=== PATIENT | female | born 1960 | race Caucasian/White ===

== ENCOUNTER → 2016-10-29 | Outpatient (CLI) | payer BC ==
--- NOTE | 2016-10-31 07:42 | MM ---
Reason for exam: screening (asymptomatic). History: Patient is postmenopausal and has history of other cancer at age 55. Physical Findings: Nurse did not find any significant physical abnormalities on exam. MG Screening Mammo w CAD Bilateral CC and MLO view(s) were taken. There are scattered fibroglandular densities. Finding #1: There is a 5 mm equal density (isodense), circumscribed oval masses in the upper outer right breast and the lower outer left breast. Finding #2: There are typically benign calcifications in the right breast. These results were verbally communicated with the patient and result sheet given to the patient on 10/29/16. ASSESSMENT: Incomplete: need additional imaging evaluation, BI-RAD 0 RECOMMENDATION: Ultrasound of both breasts. [facility] will attempt to contact patient to return for ultrasound.
--- NOTE | 2016-10-31 07:46 | USB ---
Reason for exam: additional evaluation requested from abnormal screening. History: Patient is postmenopausal and has history of other cancer at age 55. US Breast Limited BILAT Right breast ultrasound demonstrates a 0.4 x 0.4 x 0.4cm lipoma at 9 o'clock, a 0.8 x 0.9 x 1.3cm lipoma at 9 o'clock, a 0.7 x 0.6 x 0.4cm mixed lesion at 9 o'clock and a 0.4 x 0.3 x 0.6cm questionable node at 9 o'clock. Left breast ultrasound demonstrates a 0.6 x 0.6 x 0.5cm mixed lesion with some shadowing at 4 o'clock for which a biopsy is recommended, a 0.6 x 0.3 x 1.0cm ductal lesion at 6 o'clock and a 0.9 x 0.5 x 0.4cm mixed lesion at 5 o'clock. These results were verbally communicated with the patient and result sheet given to the patient on 10/29/16. ASSESSMENT: Suspicious, BI-RAD 4 - Left RECOMMENDATION: Surgical consultation and ultrasound core biopsy of the left breast. (4 o'clock) Called Dr. Erickson with mammographic findings and has scheduled an appointment for the patient for 11/06/16 at 1:[address] Ortiz. PRELIMINARY REPORT CALLED AND FAXED TO DR. ORTIZ ON 10/31/16 AT 800/TP.
== END | disposition home or self-care (01) ==
LOC: RADMAMWWP 10:04
PROVIDERS: ATTEND Family Medicine
DX: Z12.31 Encounter for screening mammogram for malignant neoplasm of breast (principal); R92.8 Other abnormal and inconclusive findings on diagnostic imaging of breast
CPT/HCPCS: 76642; G0202

== ENCOUNTER → 2016-11-13 | Day surgery (SDC) | payer BC ==
[2016-11-13 12:08] VITALS: BMI 40.5
[2016-11-13 13:17] VITALS: BP 141/91; PULSE 71; RESP 18; TEMP 97.2
--- NOTE | 2016-11-13 13:53 | USB ---
EXAMINATION TYPE: US biopsy breast VAD LT, Postbiopsy MG diagnostic mammo LT wo CAD DATE OF EXAM: 11/13/2016 CLINICAL HISTORY: 56-year-old female R92.8 Abnormal mammogram and lesion on ultrasound. TECHNIQUE: Ultrasound guided core biopsy of the left breast. COMPARISON: 10/29/2016 FINDINGS: The procedure of ultrasound guided core biopsy was explained to the patient. Benefits, alternatives, and risks were discussed. An informed consent was then obtained. The patient was placed in supine positioning for imaging and for the procedure. The overlying skin was prepped and draped in usual sterile fashion. 1 % lidocaine was used as anesthetic into the skin and subcutaneous tissue up to area of concern in the 4:00 left breast. Under ultrasound guidance, a 13-gauge vacuum-assisted mammotome Elite biopsy gun device was used to obtain 5 core samples. Fibrocystic change versus cyst cluster versus complex cyst. Following this, a ribbon clip was left at the site of biopsy. Postbiopsy mammogram shows the clip at the 5:00 position middle depth just anterior to the questioned mammographic asymmetry The patient tolerated the procedure well without any immediate complication. The patient was kept in the radiology department for short stay after the procedure and then discharged home in stable condition. IMPRESSION: Successful, uncomplicated ultrasound guided core biopsy of area of concern in the 4:00 left breast. RECOMMENDATIONS: 1. Follow-up pathology. 2. Six-month follow-up mammogram if benign results. Pathology Results: Benign BREAST, LEFT 4:00, CORE BIOPSY: FIBROCYSTIC CHANGES INCLUDING CYSTS, FIBROSIS, COLUMNAR CELL HYPERPLASIA, ADENOSIS, APOCRINE METAPLASIA AND RARE CALCIFICATIONS. Recommendation Follow up ultrasound of the left breast in 6 months. DIANA
== END ==
LOC: RADUSWWP 11:34
PROVIDERS: ATTEND Surgery
DX: N60.12 Diffuse cystic mastopathy of left breast (principal); N60.22 Fibroadenosis of left breast; N60.82 Other benign mammary dysplasias of left breast; R92.1 Mammographic calcification found on diagnostic imaging of breast; R92.8 Other abnormal and inconclusive findings on diagnostic imaging of breast
CPT/HCPCS: 88305; 19083; G0206; A4648; J2001

== ENCOUNTER → 2019-12-14 | Outpatient (CLI) | payer BC ==
--- NOTE | 2019-12-14 12:39 | XR ---
EXAMINATION TYPE: XR knee limited bilateral DATE OF EXAM: 12/14/2019 COMPARISON: NONE HISTORY: Pain TECHNIQUE: Three views of each knee are submitted. FINDINGS: There is narrowing of the knee joint with mild hypertrophic spurring bilaterally. Small suprapatellar bursal fluid collections are noted. Arthropathy of the patellofemoral joints greater on the left. Mi ld diffuse osteopenia. No acute fracture.. Osseous structures are intact. No acute fracture seen. IMPRESSION: 1. Diffuse osteopenia with bilateral mild arthropathy correlate for osteoarthritis..
== END | disposition home or self-care (01) ==
LOC: RADXRMAIN 11:33
PROVIDERS: ATTEND Family Medicine
DX: M85.862 Other specified disorders of bone density and structure, left lower leg (principal); M85.861 Other specified disorders of bone density and structure, right lower leg; M12.862 Other specific arthropathies, not elsewhere classified, left knee; M12.861 Other specific arthropathies, not elsewhere classified, right knee

== ENCOUNTER → 2020-02-02 | Outpatient (CLI) | payer BC ==
--- NOTE | 2020-02-03 14:45 | CT ---
EXAMINATION TYPE: CT abdomen w con DATE OF EXAM: 02/02/2020 COMPARISON: CT abdomen and pelvis 11/28/2015, 10/30/2010, 09/07/2009. HISTORY: Hemangioma of liver CT DLP: [id number] mGycm Automated exposure control for dose reduction was used. TECHNIQUE: Helical acquisition of images was performed from the lung bases through the top of iliac crest to include entire abdomen. CONTRAST: Performed with Oral Contrast and with IV Contrast, patient injected with 100 mL of Isovue 300. FINDINGS: LUNG BASES: Normal. LIVER: Within the right liver segment 5 there is a 3.1 x 3.1 x 3.1 cm redemonstrated lesion with tori pheral enhancement and near complete related filling, most likely benign hemangioma. This is not sign ificantly changed from 09/07/2009 CT comparison. BILIARY SYSTEM: Status post cholecystectomy. No intrahepatic or extrahepatic biliary ductal dilatatio n. PANCREAS: Normal. SPLEEN: Normal. ADRENALS: Normal. KIDNEYS: No hydronephrosis. Redemonstrated renal cysts and too small to characterize hypodense lesion s bilaterally. BOWEL: No obstruction or thickening. Colonic diverticulosis. No acute diverticulitis. PERITONEUM: Normal. LYMPH NODES: No lymphadenopathy. VASCULATURE: No abdominal aortic aneurysm. MUSCULOSKELETAL: Degenerative changes of the spine. IMPRESSION: 3.1 cm hepatic hemangioma not significantly changed in size and 10 years, versus 09/07/2009 comparison .
== END | disposition home or self-care (01) ==
LOC: RADCTMAIN 08:55
PROVIDERS: ATTEND Family Medicine
DX: D18.03 Hemangioma of intra-abdominal structures (principal)
CPT/HCPCS: 74160; Q9967

== ENCOUNTER → 2023-03-21 | Outpatient (CLI) | payer BC ==
--- NOTE | 2023-03-21 09:37 | US ---
EXAMINATION TYPE: US kidneys/renal and bladder DATE OF EXAM: 03/21/2023 COMPARISON: CT 2019, US 2014 CLINICAL INDICATION: Female, 62 years old with history of N28.1 CYST OF KIDNEY, ACQUIRED; Follow up k idney cysts EXAM MEASUREMENTS: Right Kidney: 10.7 x 5.5 x 6.1 cm Left Kidney: 11.9 x 5.8 x 5.9 cm Right Kidney: 2.1 x 1.9 x 2.2cm cyst mid superior pole Left Kidney: 3.3 x 2.9 x 3.2cm cyst lateral mid pole, 2.6 x 1.9 x 2.0cm hyperechoic area superior lupe e Bladder: wnl Bilateral Jets seen: yes There is no evidence for hydronephrosis at this point in time. No nephrolithiasis is seen. No suspi cious masses are identified. 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 The urinary bladder is anechoic. Bilateral ureteral jets are seen. IMPRESSION: 1. No evidence for acute process. Right peripelvic renal cysts appear simple. 2. 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
--- NOTE | 2023-03-22 08:37 | MM ---
Reason for Exam: Screening (asymptomatic). Last mammogram was performed 3 year(s) and 4 month(s) ago. Patient History: Menarche at age 13. First Full-Term at age 28. Postmenopausal. Other cancer, age 55. 11/13/2016, Benign Core Biopsy on the left side. Risk Values: Soledad 5 year model risk: 1.9%. NCI Lifetime model risk: 9.3%. Prior Study Comparison: 10/29/2016 Bilateral Screening Mammogram, [facility]. 11/13/2016 Left Diagnostic Mammogram, [facility]. 12/14/2019 Bilateral Screening Mammogram, [facility]. Tissue Density: There are scattered fibroglandular densities. Findings: Analyzed By CAD. Pattern appears stable. Some ill-defined underlying chronic nodularity may be present, stable from comparison. Some scattered benign-appearing calcifications are present. A core marker is within the left breast. No suspicious groups of microcalcifications, spiculated or lobular masses, architectural distortion or other secondary signs of malignancy are mammographically apparent. Overall Assessment: Benign, BI-RAD 2 Management: Screening Mammogram of both breasts in 1 year. A negative mammogram report should not preclude additional follow up of suspicious palpable abnormalities. Patient should continue monthly self breast exam. A clinical breast exam by your physician is recommended on an annual basis and results should be correlated with mammographic findings. Electronically signed and approved by: Buster Lopez D.O. Radiologis
== END | disposition home or self-care (01) ==
LOC: RADUSWWP 08:39
PROVIDERS: ATTEND Family Medicine
DX: Z12.31 Encounter for screening mammogram for malignant neoplasm of breast (principal); D17.71 Benign lipomatous neoplasm of kidney; N28.1 Cyst of kidney, acquired; Z78.0 Asymptomatic menopausal state
CPT/HCPCS: 76770; 77063; 77067

== ENCOUNTER → 2024-06-18 | Outpatient (CLI) | payer BC ==
--- NOTE | 2024-06-18 12:24 | MM ---
Reason for Exam: Screening (asymptomatic). Last mammogram was performed 1 year(s) and 2 month(s) ago. Patient History: Menarche at age 13. First Full-Term at age 28. Postmenopausal. Other cancer, age 55. 11/13/2016, Benign Core Biopsy on the left side. Risk Values: Soledad 5 year model risk: 2.1%. NCI Lifetime model risk: 8.7%. Prior Study Comparison: 11/13/2016 Left Diagnostic Mammogram, [facility]. 12/14/2019 Bilateral Screening Mammogram, [facility]. 03/21/2023 Bilateral MG 3D screening mammo w/cad, [facility]. Tissue Density: The breasts are almost entirely fatty. Findings: Analyzed By CAD. Left breast biopsy clip. Right breast: There is no suspicious group of microcalcifications or new suspicious mass. Benign-appearing calcifications right breast. Left breast: There is no suspicious group of microcalcifications or new suspicious mass. Benign-appearing calcifications left breast. Overall Assessment: Benign, BI-RAD 2 Management: Screening Mammogram of both breasts in [address] [facility] will attempt to contact patient to return for supplemental views and ultrasound if indicated. Patient should continue monthly self-breast exams. A clinical breast exam by your physician is recommended on an annual basis. This exam should not preclude additional follow-up of suspicious palpable abnormalities. Note on Soledad scores and lifetime risk: 1. A Soledad score greater than 3% is considered moderate risk. If this is the case, consider specialist referral to assess eligibility for a risk reducing agent. 2. If overall lifetime risk for the development of breast cancer is 20% or higher, the patient may qualify for future screening with alternating mammogram and breast MRI. [facility], , 06/18/2024 12:18 PM. Electronically signed and approved by: Brayden Zhou DO
== END | disposition home or self-care (01) ==
LOC: RADMAMWWP 08:37
PROVIDERS: ATTEND Family Medicine
DX: Z12.31 Encounter for screening mammogram for malignant neoplasm of breast (principal); R92.313 Mammographic fatty tissue density, bilateral breasts; R92.1 Mammographic calcification found on diagnostic imaging of breast; Z78.0 Asymptomatic menopausal state
CPT/HCPCS: 77063; 77067